=== PATIENT | male | born 1945 | race Caucasian/White ===

== ENCOUNTER → 2020-01-03 | Outpatient (CLI) | payer OTHER ==
--- NOTE | ~2020-01-03 | PF ---
[address] [address] PULMONARY FUNCTION REPORT Name: JOANN FONTAINE Room: [facility]#: [id number] Admission: 01/03/20 Attend Phys: Weston Rodríguez MD Discharge: Date of : 43 Report #: [id number] THIS REPORT FOR: //name// CC: Weston Rodríguez FAM unknown The FVC and FEV1 are both reduced with a ratio that is 65%. There is no bronchodilator response. The spirometry indicates that there is a moderate obstructive lung disease. There is no bronchodilator response. By: [id number] Turner, DO /nt
== END ==
LOC: M.PUL 12-27 15:37
DX: J92.9 Pleural plaque without asbestos (principal); J98.4 Other disorders of lung